=== PATIENT | female | born 1980 | race Caucasian/White ===

== ENCOUNTER 2018-11-21 12:21 | Outpatient (CLI) | payer OTHER | END 2018-11-21 23:59 | disposition home or self-care (01) | LOC: RAD 12:21 | PROVIDERS: ATTEND Family Medicine | DX: M50.322 Other cervical disc degeneration at C5-C6 level (principal); M25.511 Pain in right shoulder | CPT/HCPCS: 72050 ==

== ENCOUNTER → 2019-03-11 | Outpatient (CLI) | payer OTHER | END | disposition home or self-care (01) | LOC: RAD 15:05 | PROVIDERS: ATTEND Family Medicine | DX: M75.21 Bicipital tendinitis, right shoulder (principal); M75.91 Shoulder lesion, unspecified, right shoulder ==

== ENCOUNTER 2019-09-16 13:34 | Emergency (ER) | payer OTHER ==
[~2019-09-16] VITALS: Ht 165.1 cm; Wt 59.0 kg
[2019-09-16 13:37] VITALS: BP 105/70
--- NOTE | 2019-09-16 13:38 | NUR ---
MICHAEL ARCE TRIAGING PT. THIS RN GOT REPORT FROM PT.
--- NOTE | 2019-09-16 13:42 | NUR ---
TASK RN NOTE: PT TRIAGED BY THIS RN; PT HIT RT HAND ON TABLE WHILE WORKING, SUSTAINED ABRASION TO TOP OF RIGHT HAND, BLEEDING CONTROLLED LAST TETANUS >5 YRS AGO EDMD SAHM AT BEDSIDE FOR INITIAL ASSESSMENT. REPORT GIVEN TO PRIMARY RN KEKE.
--- NOTE | 2019-09-16 13:45 | NUR ---
ERMD AT BEDSIDE.
[2019-09-16] MEDS ORDERED: DIPH,PERTUSS(ACELL),TET VAC/PF 0.5 ML IM-VACC ONE ×2 (13:53→14:00)
[2019-09-16] MEDS ORDERED: LIDOCAINE-MPF 1%, 5ML ONE (13:53)
[2019-09-16] MEDS ORDERED: LIDOCAINE-MPF 1%, 5ML INFIL ONE (14:00)
--- NOTE | 2019-09-16 14:03 | NUR ---
RN PROVIDED PT WITH NS AND IRRIGATION DEVICE. PT AN OR NURSE AND PERFORMED IRRAGATION ON SELF.
[2019-09-16] MEDS ORDERED: NEOSPORIN OINT. PKT 1 PACKET ONE (14:12)
--- NOTE | 2019-09-16 14:18 | NUR ---
EMT DRESSING PT'S WOUND.
--- NOTE | 2019-09-16 14:51 | NUR ---
PT DC IN A STABLE CONDITION. DC INSTRUCTIONS DISCUSSED WITH PT. PT VERBALIZED UNDERSTANDING. NO FURTHER QUESTIONS OR CONCERNS EXPRESSED AT THAT TIME. PT AMBULATED TO DC DESK WITH A STEADY GAIT.
== END 2019-09-16 14:53 | disposition home or self-care (01) ==
LOC: ED 14:25
DX: S60.416A Abrasion of right little finger, initial encounter (principal); X58.XXXA Exposure to other specified factors, initial encounter; Y93.89 Activity, other specified; Y92.89 Other specified places as the place of occurrence of the external cause; Y99.8 Other external cause status
CPT/HCPCS: 90471; 90715; 99283

== ENCOUNTER → 2019-12-09 | Outpatient (CLI) | payer OTHER | END | disposition home or self-care (01) | LOC: LAB 09:42 | PROVIDERS: ATTEND Physician Assistant | DX: L70.0 Acne vulgaris (principal); Z71.89 Other specified counseling | CPT/HCPCS: 36415; 84132 ==

== ENCOUNTER → 2020-03-26 | Outpatient (CLI) | payer OTHER ==
[~2020-03-26] MED LIST: BUPIVACAINE/PF 0.5% ONE; GADOTERATE 2.5 MMOL/5 ML VIAL ONE; LIDOCAINE-MPF 1%, 5ML ONE; OMNIPAQUE 300 MG/ML, 10ML VIAL ONE
== END | disposition home or self-care (01) ==
LOC: RAD 14:56
PROVIDERS: ATTEND Orthopaedic Surgery
DX: M25.511 Pain in right shoulder (principal); G89.29 Other chronic pain; M75.101 Unspecified rotator cuff tear or rupture of right shoulder, not specified as traumatic; Z91.018 Allergy to other foods
CPT/HCPCS: 23350; 73040; 73222; A9575; Q9967; S0020

== ENCOUNTER → 2020-05-13 | Outpatient (CLI) | payer OTHER ==
[~2020-05-13] MED LIST changes: +ACYC-113 PO; -BUPIVACAINE/PF 0.5% ONE; +CHOL10003 PO; -GADOTERATE 2.5 MMOL/5 ML VIAL ONE; +L.AC1CAP6 PO; -LIDOCAINE-MPF 1%, 5ML ONE; -OMNIPAQUE 300 MG/ML, 10ML VIAL ONE; +SPIR25TA5 PO; +immune support PO
[2020-05-13 16:46] LABS: ANION GAP 3 mmol/L (5-15); CALCIUM 8.8 mg/dL (8.5-10.1); CHLORIDE 105 mmol/L (98-107)
[2020-05-13 17:01] LABS: ALANINE AMINOTRANSFERASE 31 U/L (12-78); CREATININE 0.77 mg/dL (0.55-1.02)
[2020-05-13 17:02] LABS: ALKALINE PHOSPHATASE 65 U/L (45-117); BILIRUBIN,TOTAL 0.3 mg/dL (0.2-1.0)
== END | disposition home or self-care (01) ==
LOC: STAR 15:44
PROVIDERS: ATTEND Orthopaedic Surgery
DX: Z01.812 Encounter for preprocedural laboratory examination (principal); S46.011A Strain of muscle(s) and tendon(s) of the rotator cuff of right shoulder, initial encounter; M75.21 Bicipital tendinitis, right shoulder; M25.511 Pain in right shoulder; Z20.828 Contact with and (suspected) exposure to other viral communicable diseases; X58.XXXA Exposure to other specified factors, initial encounter; Y93.89 Activity, other specified; Y92.89 Other specified places as the place of occurrence of the external cause; Y99.8 Other external cause status
CPT/HCPCS: 80053; 87635

== ENCOUNTER 2020-05-19 05:22 | Day surgery (SDC) | payer OTHER ==
[~2020-05-19] VITALS: Ht 165.1 cm; Wt 62.1 kg
[2020-05-19] MEDS ORDERED: LACTATED RINGERS 1,000 ML IV SCH (06:00)
[2020-05-19] MEDS ORDERED: CHLORHEXIDINE 15 ML UDC MM ONE (06:00)
[2020-05-19 06:03] VITALS: BP 106/66
[2020-05-19] MEDS ORDERED: BUPIVACAINE/PF 0.25% ONE (06:06)
[2020-05-19] MEDS ORDERED: MIDAZOLAM 1 MG/ML, 5ML ONE (06:15)
[2020-05-19] MEDS ORDERED: FENTANYL PF 250 MCG/5ML ONE (06:15)
[2020-05-19 06:22] LABS: HCG UR SG 1.018 (1.003-1.030)
[2020-05-19] MEDS ORDERED: DEXAMETHASONE 4 MG/ML, 1ML ONE (06:57)
[2020-05-19] MEDS ORDERED: ROCURONIUM 10MG/ML,5ML ONE (08:09)
[2020-05-19] MEDS ORDERED: NEOSTIGMINE 1 MG/ML, 10ML ONE (08:09)
[2020-05-19] MEDS ORDERED: SUCCINYLCHOLINE 20 MG/ML, 10ML ONE (08:09)
[2020-05-19] MEDS ORDERED: GLYCOPYRROLATE 0.2MG/1ML, 5ML ONE (08:09)
[2020-05-19] MEDS ORDERED: ONDANSETRON 2MG/ML, 2ML ONE (08:09)
[2020-05-19] MEDS ORDERED: CEFAZOLIN 1,000 MG ONE (08:09)
[2020-05-19] MEDS ORDERED: PROPOFOL 10 MG/ML, 20ML ONE (08:09)
[2020-05-19] MEDS ORDERED: FENTANYL PF 100 MCG/2ML ONE (08:54)
[2020-05-19] MEDS: FENTANYL PF 100 MCG/2ML IV PRN ×3 (08:58→09:21)
[2020-05-19] MEDS ORDERED: OXYcodone 5 MG/5 ML ORAL.SOL UDC ONE (09:08)
[2020-05-19] MEDS ORDERED: LORazepam 2 MG/ML, 1ML ONE (09:26)
[2020-05-19] MEDS ORDERED: hydrALAzine 20 MG/ML, 1ML IV PRN (09:30)
[2020-05-19] MEDS ORDERED: HALOPERIDOL 5 MG/ML IV PRN (09:30)
[2020-05-19] MEDS ORDERED: PROMETHAZINE 25 MG/ML, 1ML IVPush PRN (09:30)
[2020-05-19] MEDS ORDERED: OXYcodone 5 MG/5 ML ORAL.SOL UDC PO PRN (09:30)
[2020-05-19] MEDS ORDERED: MEPERIDINE/PF 25MG/0.5ML IVPush PRN (09:30)
[2020-05-19] MEDS ORDERED: DIPHENHYDRAMINE 50 MG/ML, 1ML IVPush PRN (09:30)
[2020-05-19] MEDS ORDERED: FENTANYL PF 100 MCG/2ML IV PRN (09:30)
[2020-05-19] MEDS ORDERED: LABETALOL 5MG/ML, 20ML IV PRN (09:30)
[2020-05-19] MEDS ORDERED: LORazepam 2 MG/ML, 1ML IVPush ONE (09:30)
[2020-05-19] MEDS ORDERED: HYDROmorphone 1 MG/ML, 1ML INJ IVPush PRN (09:30)
== END 2020-05-19 11:00 | disposition home or self-care (01) ==
LOC: OUT 05:22
PROVIDERS: ATTEND Orthopaedic Surgery
DX: M75.101 Unspecified rotator cuff tear or rupture of right shoulder, not specified as traumatic (principal); M25.511 Pain in right shoulder; M24.111 Other articular cartilage disorders, right shoulder; M75.41 Impingement syndrome of right shoulder; E06.3 Autoimmune thyroiditis; Z91.018 Allergy to other foods; Z79.899 Other long term (current) drug therapy; Z98.890 Other specified postprocedural states
CPT/HCPCS: 29826; 29827; 29828; 64415; 81025; C1713; J0330; J0690; J1100; J2060; J2250; J2405; J2704; J3010; J7120; J2710